=== PATIENT | male | born 1950 | race Caucasian/White ===

== ENCOUNTER 2021-07-30 13:41 | Emergency (ER) | payer MEDICARE, MEDICAID ==
[~2021-07-30] VITALS: Ht 160 cm; Wt 61.4 kg
[2021-07-30 16:04] VITALS: BP 149/85
== END 2021-07-30 17:26 | disposition home or self-care (01) ==
LOC: EMS 13:41
DX: T40.2X1A Poisoning by other opioids, accidental (unintentional), initial encounter (principal); E11.9 Type 2 diabetes mellitus without complications; Y92.89 Other specified places as the place of occurrence of the external cause
CPT/HCPCS: 82948; 82962; 99283